=== PATIENT | male | born 1980 | race Caucasian/White ===

== ENCOUNTER 2016-10-14 12:57 | Inpatient (IN) | payer OTHER ==
[2016-10-14 14:44] VITALS: BMI 20.3
--- NOTE | 2016-10-14 17:19 | HP ---
[id number] Restless Observation: 1= Difficult to Sit Still Pupil Size: 0= Normal to Room Light Bone or Joint Aches: 2= Severe Diffuse Aches Runny Nose/ Eye Tearin= Runny Nose/Eyes GI Upset > 30mins: 2= Nausea/Diarrhea Tremor Observation: 2= Slight Tremor Visible Yawning Observation: 0= None Anxiety or Irritability: 2=Irritable/Anxious Goose Flesh Skin: 3=Piloerection COWS Score: 15 CIWA Score - CIWA Score Nausea/Vomitin-Mild Nausea/No Vomiting Muscle Tremors: 4-Moderate,w/Arms Extend Anxiety: 4-Mod. Anxious/Guarded Agitation: 4-Moderately Restless Paroxysmal Sweats: 1-Minimal Palms Moist Orientation: 0-Oriented Tacttile Disturbances: 0-None Auditory Disturbances: 0-None Visual Disturbances: 0-None Headache: 1-Very Mild CIWA-Ar Total Score: 15 Admission ROS S - HPI Chief Complaint: WITHDRAWAL SX Allergies/Adverse Reactions: Allergies Allergy/AdvReac Type Severity Reaction Status Date / Time No Known Allergies Allergy Verified 10/14/16 17:52 History of Present Illness: 36 YEARS OLD MALE WITH LONG HISTORY OF OPIOID NICOTINE XANAX DEPENDENCE DENIES MEDICAL ISSUE HAS DEPRESSION IS ADMITTED TO DETOX Exam Limitations: No Limitations - Ebola screening Have you traveled outside of the country in the last 21 days: No Have you had contact with anyone from an Ebola affected area: No Have you been sick,other than usual withdrawal symptoms: No Do you have a fever: No - Review of Systems Constitutional: Chills, Loss of Appetite, Changes in sleep, Unintentional Wgt. Loss, Unexplained wgt Loss EENT: reports: No Symptoms Reported Respiratory: reports: No Symptoms reported Cardiac: reports: No Symptoms Reported GI: reports: Nausea, Poor Appetite, Poor Fluid Intake, Abdominal cramping : reports: No Symptoms Reported Musculoskeletal: reports: Back Pain, Joint Pain, Muscle Pain, Neck Pain Neuro: reports: Tremors Endocrine: reports: No Symptoms Reported Hematology: reports: No Symptoms Reported Psychiatric: reports: Judgement Intact, Orientated x3, Depressed Other Systems: Reviewed and Negative Patient History - Patient Medical History Hx Anemia: No Hx Asthma: No Hx Chronic Obstructive Pulmonary Disease (COPD): No Hx Cancer: No Hx Cardiac Disorders: No Hx Congestive Heart Failure: No Hx Hypertension: No Hx Hypercholesterolemia: No Hx Pacemaker: No HX Cerebrovascular Accident: No Hx Seizures: No Hx Dementia: No Hx Diabetes: No Hx Gastrointestinal Disorders: No Hx Liver Disease: No Hx Genitourinary Disorders: No Hx Sexually Transmitted Disorders: No Hx Renal Disease (ESRD): No Hx Thyroid Disease: No Hx Human Immunodeficiency Virus (HIV): No (LAST 2013 negative) Hx Hepatitis C: Yes Hx Depression: Yes Hx Suicide Attempt: No Hx Bipolar Disorder: No Hx Schizophrenia: No - Patient Surgical History Past Surgical History: No Hx Neurologic Surgery: No Hx Cataract Extraction: No Hx Cardiac Surgery: No Hx Lung Surgery: No Hx Breast Surgery: No Hx Breast Biopsy: No Hx Abdominal Surgery: No Hx Appendectomy: No Hx Cholecystectomy: No Hx Genitourinary Surgery: No Hx Orthopedic Surgery: No - PPD History Previous Implant?: Yes Implanted On Prior [facility] Admission?: Yes Date: 12/27/15 Results: 0 MM PPD to be Administered?: No - Smoking Cessation Smoking history: Current every day smoker Have you smoked in the past 12 months: Yes Aproximately how many cigarettes per day: 7 Cigars Per Day: 0 Hx Chewing Tobacco Use: No Initiated information on smoking cessation: Yes 'Breaking Loose' booklet given: 10/14/16 - Substance & Tx. History Hx Alcohol Use: No Hx Substance Use: Yes Substance Use Type: Marijuana, Opiates, Tranquilizers Hx Substance Use Treatment: Yes - Substances Abused Alprazolam (Xanax) Route: Oral Frequency: Daily Amount used: 2 MG Age of first use: 33 Date of Last Use: 10/13/16 Heroin Route: Injection Frequency: Daily Amount used: 15 BAGS Age of first use: 22 Date of Last Use: 10/13/16 Family Disease History - Family Disease History Family Disease History: Other: Grandparent () Other Family History: ONLY CHILD Admission Physical Exam BHS - Vital Signs Vital Signs: Vital Signs - 24 hr 10/14/16 14:42 Temperature 97 F L Pulse Rate 75 Respiratory 20 Rate Blood Pressure 115/71 - Physical General Appearance: Yes: Appropriately Dressed, Mild Distress, Thin, Tremorous, Irritable, Sweating, Anxious HEENTM: Yes: Hearing grossly Normal, Normal ENT Inspection, Normocephalic, Normal Voice Respiratory: Yes: Chest Non-Tender, Lungs Clear, Normal Breath Sounds, No Respiratory Distress, No Accessory Muscle Use Neck: Yes: Supple, Trachea in good position Breast: Yes: Breasts Symetrical Cardiology: Yes: Regular Rhythm, Regular Rate, S1, S2 Abdominal: Yes: Non Tender, Soft Genitourinary: Yes: Within Normal Limits Back: Yes: Normal Inspection Musculoskeletal: Yes: full range of Motion, Gait Steady, Back pain, Muscle Pain Extremities: Yes: Normal Range of Motion, Non-Tender, Tremors, Erythema (IV OPIOID LEFT INNER ELBOW) Neurological: Yes: Fully Oriented, Alert, Motor Strength 5/5, Normal Response, Depressed Affect Integumentary: Yes: Warm, Track Mcelroy Lymphatic: Yes: Within Normal Limits - Diagnostic (1) Opioid dependence with withdrawal Status: Acute (2) Sedative, hypnotic or anxiolytic dependence with withdrawal, uncomplicated Status: Acute (3) Weight loss Status: Acute (4) Hepatitis C Status: Chronic Qualifiers: Viral hepatitis chronicity: chronic Hepatic coma status: without hepatic coma Qualified Code(s): B18.2 - Chronic viral hepatitis C Comment: SCHEDULE TO BE TREATED (5) Nicotine dependence Status: Acute Qualifiers: Nicotine product type: cigarettes Substance use status: in withdrawal Qualified Code(s): F17.213 - Nicotine dependence, cigarettes, with withdrawal (6) Depression (emotion) Status: Suspected Qualifiers: Depression Type: dysthymia Qualified Code(s): F34.1 - Dysthymic disorder Comment: OF GRANDMOTHER (7) Abrasion of skin Status: Acute Comment: LEFT INNER ELBOW Cleared for Admission S - Detox or Rehab [facility] Level of Care: Medically Managed Detox Regimen/Protocol: Methadone/Valium S Breath Alcohol Content Breath Alcohol Content: 0 Urine Drug Screen - Results Drug Screen Negative: No Urine Drug Screen Results: THC-Marijuana, OPI-Opiates, MET-Methamphetamine, BZO- Benzodiazepines
[2016-10-14] MEDS ORDERED: LOPERAMIDE HCL 2 MG CAPSULE PO PRN (17:26)
[2016-10-14] MEDS ORDERED: ACETAMINOPHEN 325 MG TABLET (FP) PO PRN (17:26)
[2016-10-14] MEDS ORDERED: MAGNESIUM CITRATE 300 ML BOTTLE PO PRN (17:26)
[2016-10-14] MEDS ORDERED: P-EPHED 60MG/TRIPROLIDI 2.5MG TABLET PO PRN (17:26)
[2016-10-14] MEDS ORDERED: MAGNESIUM HYDROX 2400MG/30ML ORAL SUSPENSION 30 ML CUP PO PRN (17:26)
[2016-10-14] MEDS ORDERED: IBUPROFEN 400 MG TABLET (FP) PO PRN (17:26)
[2016-10-14] MEDS ORDERED: MAG HYDROX/AL HYDROX/SIMETH 30 ML UNIT-DOSE CUP PO PRN (17:26)
[2016-10-14] MEDS ORDERED: diphenhydrAMINE HCL 50 MG CAPSULE PO PRN (17:26)
[2016-10-14] MEDS ORDERED: guaiFENesin/D-METHORPHAN HB 10 ML UNIT-DOSE CUPS PO PRN (17:26)
[2016-10-14] MEDS ORDERED: NICOTINE POLACRILEX 2 MG GUM BC PRN (17:26)
[2016-10-14] MEDS ORDERED: MENTHOL/PHENOL 1 EACH UD MM PRN (17:26)
[2016-10-14] MEDS ORDERED: BACITRACIN 0.9 GM PACKET TP ONE (18:15)
[2016-10-14] MEDS ORDERED: METHADONE HCL 10 MG TABLET (FOR DETOX USE ONLY) PO ONE ×2 (18:30→23:00)
[2016-10-14] MEDS ORDERED: diazePAM 5 MG TABLET PO ONE (18:30)
[2016-10-14] MEDS ORDERED: cloNIDine HCL 0.1 MG TABLET PO ONE (21:43)
[2016-10-14] MEDS ORDERED: THIAMINE HCL 100 MG TABLET (FP) PO SCH (22:00)
[2016-10-14 23:26] LABS: URINE APPEARANCE CLEAR; URINE BILIRUBIN NEGATIVE (NEGATIVE); URINE BLOOD NEGATIVE (NEGATIVE); URINE COLOR STRAW; URINE GLUCOSE (UA) NEGATIVE (NEGATIVE); URINE KETONE NEGATIVE (NEGATIVE); URINE LEUK ESTERASE NEGATIVE (NEGATIVE); URINE NITRITE NEGATIVE (NEGATIVE); URINE PROTEIN NEGATIVE (NEGATIVE); URINE UROBILINOGEN NEGATIVE E.U./dl (0.2-1.0)
--- NOTE | 2016-10-15 09:51 | CONSULT ---
[facility] Psychiatric Consult - Data Date of interview: 10/15/16 Admission source: [facility] Identifying data: Readmission to [facility] for this 36 y/o male seeking detox treatment on for heroin,alcohol,marijuana and sedative/ anxiolytic dependence.Patient is single without children,undomiciled,unemployed and supported on food stamps. Substance Abuse History: - Smoking Cessation. Smoking history: Current every day smoker. Have you smoked in the past 12 months: Yes. Aproximately how many cigarettes per day: 7. Cigars Per Day: 0. Hx Chewing Tobacco Use: No. Initiated information on smoking cessation: Yes. 'Breaking Loose' booklet given : 10/14/16. - Substance & Tx. History. Hx Alcohol Use: No. Hx Substance Use: Yes. Substance Use Type: Marijuana, Opiates, Tranquilizers. Hx Substance Use Treatment: Yes. - Substances Abused. Alprazolam (Xanax). Route: Oral. Frequency: Daily. Amount used: 2 MG. Age of first use: 33. Date of Last Use: 10/13/16. Heroin. Route: Injection. Frequency: Daily. Amount used: 15 BAGS. Age of first use: 22. Date of Last Use: 10/13/16. Confirmed by patient. Medical History: Hepatitis C. Psychiatric History: Patient denies. Physical/Sexual Abuse/Trauma History: Patient denies. Additional Comment: Urine Drug Screen Results: THC-Marijuana, OPI-Opiates, MET- Methamphetamine, BZO-Benzodiazepines.Noted. Mental Status Exam - Mental Status Exam Alert and Oriented to: Time, Place, Person Cognitive Function: Good Patient Appearance: Unkempt, Disheveled (short stature,frail habitus) Mood: Angry, Anxious, Irritable Affect: Mood Congruent Patient Behavior: Fatigued, Uncooperative, Talkative (medication-seeking) Speech Pattern: Clear Voice Loudness: Mildly Loud Thought Process: Goal Oriented Thought Disorder: Not Present Hallucinations: Denies Suicidal Ideation: Denies Homicidal Ideation: Denies Insight/Judgement: Poor Sleep: Poorly, Difficulty falling asleep Appetite: Poor, Weight loss Muscle strength/Tone: Normal Gait/Station: Normal Psychiatric Findings - Problem List ([place] 1, 2,3) (1) Opioid dependence with withdrawal Current Visit: Yes Status: Acute (2) Sedative, hypnotic or anxiolytic dependence with withdrawal, uncomplicated Current Visit: Yes Status: Acute (3) Alcohol dependence with uncomplicated withdrawal Current Visit: Yes Status: Acute (4) Nicotine dependence Current Visit: Yes Status: Acute Qualifiers: Nicotine product type: cigarettes Substance use status: in withdrawal Qualified Code(s): F17.213 - Nicotine dependence, cigarettes, with withdrawal (5) Amphetamine abuse Current Visit: Yes Status: Acute (6) Drug-induced mood disorder Current Visit: Yes Status: Acute (7) Insomnia Current Visit: Yes Status: Acute - Initial Treatment Plan Initial Treatment Plan: Psychoeducation.Detoxification in progress.Ambien 10 mg po hs (patient's request).Made aware of potential for parasomnias.Patient agrees with this careplan.Observation.Pharmacy claims are revisited : last prescribed seroquel in March 2016 at [facility] [id number].
[2016-10-15] MEDS ORDERED: PRENATAL VITAMINS W/ FOLIC ACID TABLET (FP) PO SCH (10:00)
[2016-10-15] MEDS ORDERED: NICOTINE 14 MG/24 HOURS TOPICAL PATCH TD SCH (10:00)
[2016-10-15] MEDS ORDERED: METHADONE HCL 10 MG TABLET (FOR DETOX USE ONLY) PO SCH (10:00)
[2016-10-15 10:03] LABS: MCH 27.9 pg (25.7-33.7); MCHC 34.1 g/dl (32.0-35.9); MEAN CELL VOLUME 81.7 fl (80-96); MEAN PLT VOLUME 8.7 fl (7.5-11.1); PLATELET COUNT 256 K/MM3 (134-434); RDW 14.1 % (11.9-15.9); WHITE BLOOD COUNT 6.5 K/mm3 (4.0-10.0)
[2016-10-15 10:27] LABS: ALBUMIN 3.5 g/dl (3.4-5.0); ALK PHOS 182 U/L (45-117); ANION GAP 7 (8-16); BILIRUBIN,TOTAL 0.6 mg/dL (0.2-1.0); CALCIUM 9.2 mg/dL (8.5-10.1); CO2 33 mmol/L (21-32); COCKROFT - GAULT 84.52; CREATININE 0.9 mg/dL (0.7-1.3); GLUCOSE,RANDOM 87 mg/dL (74-106); SGOT/AST 36 U/L (15-37); SGPT/ALT 42 U/L (12-78); TOT PROT 6.9 g/dl (6.4-8.2)
--- NOTE | 2016-10-15 11:20 | EKG ---
Test Reason : Blood Pressure : / mmHG Vent. Rate : 066 BPM Atrial Rate : 066 BPM P-R Int : 164 ms QRS Dur : 096 ms QT Int : 394 ms P-R-T Axes : 039 055 030 degrees QTc Int : 413 ms NORMAL SINUS RHYTHM RSR' OR QR PATTERN IN V1 SUGGESTS RIGHT VENTRICULAR CONDUCTION DELAY NO PREVIOUS ECGS AVAILABLE Confirmed by DENY CAMARENA MD ([id number]) on 10/15/2016 11:19:46 AM Referred By: Will Merino Confirmed By:DENY CAMARENA MD
--- NOTE | 2016-10-15 11:33 | PN ---
S CIWA - CIWA Score Nausea/Vomitin-No Nausea/No Vomiting Muscle Tremors: 4-Moderate,w/Arms Extend Anxiety: 6 Agitation: 6 Paroxysmal Sweats: 1-Minimal Palms Moist Orientation: 0-Oriented Tacttile Disturbances: 3-Moderate Itch/Numb/Burn Auditory Disturbances: 0-None Visual Disturbances: 0-None Headache: 0-None Present CIWA-Ar Total Score: 20 BHS COWS - Scale Resting Pulse: 0= [place] 80 or Below Sweatin= Chills/Flushing Restless Observation: 3= Extraneous Movement Pupil Size: 0= Normal to Room Light Bone or Joint Aches: 4=Acute Joint/Muscle Pain Runny Nose/ Eye Tearin= Nasal Congestion GI Upset > 30mins: 1= Stomach Cramp Tremor Observation of Outstretched Hands: 2= Slight Tremor Visible Yawning Observation: 2= >3x During Session Anxiety or Irritability: 2=Irritable/Anxious Goose Flesh Skin: 0=Smooth Skin COWS Score: 16 BHS Progress Note (SOAP) Subjective: IRRITABILITY,AGITATIONS,RESTLESSNESS,UNABLE TO FOLLOW DIRECTIONS,PACING UP AND DOWN AND CURSING AT STAFF NURSE ALISON CALLING HER "BI-CH". FORCEFUL DEMAND FOR CLONIDINE FROM PROVIDER WITHOUT REGARD TO PARAMETERS WHEN EXPLAINED TO PATIENT AND HARASSMENT OF NURSES TO GIVE HIM CLONIDINE INSTANTLY BY ALL MEANS. PT WAS TEAMED THIS MORNING BY FACTORER,NURSES SAKSHI ROSAS AND COUNSELOR CAMELIA. PT UNDERSTANDS HE IS ON FINAL WARNING AND HAS BEEN ENCOURAGED TO ALLOW HIMSELF TO RECEIVE THE TREATMENT AND HELP HE IS SEEKING HERE. Objective: 10/15/16 11:33 Vital Signs Temperature 95.7 F L 10/15/16 10:20 Pulse Rate 58 L 10/15/16 10:20 Respiratory Rate 16 10/15/16 10:20 Blood Pressure 105/56 10/15/16 10:20 O2 Sat by Pulse Oximetry (%) Laboratory Last Values WBC 6.5 K/mm3 (4.0-10.0) 10/15/16 07:00 RBC 4.89 M/mm3 (4.00-5.60) 10/15/16 07:00 Hgb 13.6 GM/dL (11.7-16.9) 10/15/16 07:00 Hct 40.0 % (35.4-49) 10/15/16 07:00 MCV 81.7 fl (80-96) 10/15/16 07:00 MCHC 34.1 g/dl (32.0-35.9) 10/15/16 07:00 RDW 14.1 % (11.9-15.9) 10/15/16 07:00 Plt Count 256 K/MM3 (134-434) 10/15/16 07:00 MPV 8.7 fl (7.5-11.1) D 10/15/16 07:00 Sodium 139 mmol/L (136-145) 10/15/16 07:00 Potassium 4.2 mmol/L (3.5-5.1) 10/15/16 07:00 Chloride 99 mmol/L (98-107) 10/15/16 07:00 Carbon Dioxide 33 mmol/L (21-32) H D 10/15/16 07:00 Anion Gap 7 (8-16) L 10/15/16 07:00 BUN 7 mg/dL (7-18) D 10/15/16 07:00 Creatinine 0.9 mg/dL (0.7-1.3) 10/15/16 07:00 Creat Clearance w eGFR > 60 (>60) 10/15/16 07:00 Random Glucose 87 mg/dL (74-106) 10/15/16 07:00 Calcium 9.2 mg/dL (8.5-10.1) 10/15/16 07:00 Total Bilirubin 0.6 mg/dL (0.2-1.0) 10/15/16 07:00 AST 36 U/L (15-37) 10/15/16 07:00 ALT 42 U/L (12-78) D 10/15/16 07:00 Alkaline Phosphatase 182 U/L (45-117) H D 10/15/16 07:00 Total Protein 6.9 g/dl (6.4-8.2) 10/15/16 07:00 Albumin 3.5 g/dl (3.4-5.0) 10/15/16 07:00 Urine Color Straw 10/14/16 22:52 Urine Appearance Clear 10/14/16 22:52 Urine pH 7.0 (5.0-8.0) 10/14/16 22:52 Ur Specific [place] 1.010 (1.005-1.025) 10/14/16 22:52 Urine Protein Negative (NEGATIVE) 10/14/16 22:52 Urine Glucose (UA) Negative (NEGATIVE) 10/14/16 22:52 Urine Ketones Negative (NEGATIVE) 10/14/16 22:52 Urine Blood Negative (NEGATIVE) 10/14/16 22:52 Urine Nitrite Negative (NEGATIVE) 10/14/16 22:52 Urine Bilirubin Negative (NEGATIVE) 10/14/16 22:52 Urine Urobilinogen Negative E.U./dl (0.2-1.0) 10/14/16 22:52 Ur Leukocyte Esterase Negative (NEGATIVE) 10/14/16 22:52 RPR Titer Nonreactive (NONREACTIVE) 10/15/16 07:00 Assessment: 10/15/16 11:33 WITHDRAWAL SX Plan: CONTINUE DETOX MONITOR PT'S BEHAVIOR
[2016-10-15] MEDS: CIPROFLOXACIN HCL 0.3% OPHTH 2.5ML BOTTLE OD SCH ×2 (11:43→15:07)
--- NOTE | 2016-10-15 14:06 | DS ---
[facility] Detox Discharge Summary Admission Date: 10/14/16 Discharge Date: 10/15/16 - History Present History: Alcohol Dependence, Opioid Dependence Additional Comments: PT D/C'D DUE TO NONCOMPLIANT WITH UNIT RULES AND NOT ABLE TO FOLLOW DIRECTIONS. Pertinent Past History: HEP C RIGHT EYE CONJUCTIVITIS DEPRESSION - Physical Exam Results Vital Signs: Vital Signs Temperature 95.7 F L 10/15/16 10:20 Pulse Rate 58 L 10/15/16 10:20 Respiratory Rate 16 10/15/16 10:20 Blood Pressure 105/56 10/15/16 10:20 O2 Sat by Pulse Oximetry (%) Pertinent Admission Physical Exam Findings: WITHDRAWAL SX - Treatment Patient has Accepted a Rehab Referral to: NONCOMPLIANT WITH UNIT CARE DIRECTIONS - Medication Discharge Medications: Ambulatory Orders Zolpidem Tartrate [Ambien] 10 mg PO HS #14 tablet MDD 10 03/31/16 Quetiapine Fumarate [Seroquel] 100 tab PO HS #30 tablet 04/05/16 - Diagnosis (1) Alcohol dependence with uncomplicated withdrawal Current Visit: Yes Status: Acute (2) Nicotine dependence Current Visit: Yes Status: Acute Qualifiers: Nicotine product type: cigarettes Substance use status: in withdrawal Qualified Code(s): F17.213 - Nicotine dependence, cigarettes, with withdrawal (3) Opioid dependence with withdrawal Current Visit: Yes Status: Acute (4) Weight loss Current Visit: Yes Status: Acute (5) Hepatitis C Current Visit: Yes Status: Chronic Qualifiers: Viral hepatitis chronicity: chronic Hepatic coma status: without hepatic coma Qualified Code(s): B18.2 - Chronic viral hepatitis C - AMA Did Patient Leave Against Medical Advice: No (NONCOMPLIANT WITH UNIT CARE DIRECTIONS)
[2016-10-15 14:10] VITALS: BP 125/68; PULSE 70; TEMP 95.9
[2016-10-15] MEDS ORDERED: ZOLPIDEM TARTRATE 10 MG TABLET (PARK CARE ONLY) PO PRN (22:00)
[2016-10-16] MEDS ORDERED: METHADONE HCL 5 MG TABLET (FOR DETOX USE ONLY) PO SCH (10:00)
[2016-10-16] MEDS ORDERED: diazePAM 5 MG TABLET PO SCH (10:00)
[2016-10-18] MEDS ORDERED: diazePAM 5 MG TABLET PO SCH (10:00)
[2016-10-18] MEDS ORDERED: METHADONE HCL 10 MG TABLET (FOR DETOX USE ONLY) PO SCH (10:00)
[2016-10-19] MEDS ORDERED: METHADONE HCL 5 MG TABLET (FOR DETOX USE ONLY) PO SCH (06:00)
== END 2016-10-15 13:55 | disposition home or self-care (01) | DRG 773 ==
LOC: YASAS 12:57 → Y3N 18:01
PROVIDERS: ADMIT Internal Medicine Addiction Medicine; ATTEND Internal Medicine Addiction Medicine
PROC: HZ2ZZZZ Detoxification Services for Substance Abuse Treatment (ICD-10-PCS; principal; 2016-10-15)
DX: F11.23 Opioid dependence with withdrawal (principal); F13.230 Sedative, hypnotic or anxiolytic dependence with withdrawal, uncomplicated; F10.230 Alcohol dependence with withdrawal, uncomplicated; F17.213 Nicotine dependence, cigarettes, with withdrawal; F15.10 Other stimulant abuse, uncomplicated; F19.24 Other psychoactive substance dependence with psychoactive substance-induced mood disorder; F34.1 Dysthymic disorder; G47.00 Insomnia, unspecified; B18.2 Chronic viral hepatitis C; R63.4 Abnormal weight loss; Z68.20 Body mass index [BMI] 20.0-20.9, adult
CPT/HCPCS: 36415; 80053; 81003; 85027; 86593; 93005; 93010

== ENCOUNTER 2018-04-16 14:54 | Inpatient (IN) | payer OTHER ==
[2018-04-16 15:29] VITALS: BMI 22.1
--- NOTE | 2018-04-16 15:37 | HP ---
COWS - Scale Resting Pulse: 2= [place] 101-120 Sweatin= Chills/Flushing Restless Observation: 1= Difficult to Sit Still Pupil Size: 1= Pupils >than Normal Bone or Joint Aches: 2= Severe Diffuse Aches Runny Nose/ Eye Tearin= Runny Nose/Eyes GI Upset > 30mins: 2= Nausea/Diarrhea Tremor Observation: 2= Slight Tremor Visible Yawning Observation: 1= 1-2x During Session Anxiety or Irritability: 2=Irritable/Anxious Goose Flesh Skin: 0=Smooth Skin COWS Score: 16 CIWA Score Nausea/Vomitin Muscle Tremors: 2 Anxiety: 2 Agitation: 2 Paroxysmal Sweats: 1-Minimal Palms Moist Orientation: 1-Uncertain about Date Tacttile Disturbances: 1-Very Mild Itch/Numbness Auditory Disturbances: 1-Very Mild Visual Disturbances: 0-None Headache: 2-Mild CIWA-Ar Total Score: 14 - Admission Criteria [facility] Guidelines: Admission for Medically Managed Detox: Requires at least one of the followin. CIWA greater than 12 2. Seizures within the past 24 hours 3. Delirium tremens within the past 24 hours 4. Hallucinations within the past 24 hours 5. Acute intervention needed for co occurring medical disorder 6. Acute intervention needed for co occurring psychiatric disorder 7. Severe withdrawal that cannot be handled at a lower level of care (continued vomiting, continued diarrhea, abnormal vital signs) requiring intravenous medication and/or fluids 8. Patient presents the following: CIWA greater than 12 Admission Criteria Met: Admission criteria met Admission ROS S - [facility] Chief Complaint: need help to stop drinking heroin,xanax,cocaine,marijuana Allergies/Adverse Reactions: Allergies Allergy/AdvReac Type Severity Reaction Status Date / Time No Known Allergies Allergy Verified 04/16/18 16:20 History of Present Illness: this 37 years old male with heroin,xanax,cocaine and marijuana,seeking detox, withdrawal symptom, multiple admissions in detox,last detox 02/09/18 to 02/14/18 keep relapsing nicotine dependence weight loss anxiety,depression,insomnia longest period of sobriety 4 years Exam Limitations: No Limitations - Ebola screening Have you traveled outside of the country in the last 21 days: No Have you been sick,other than usual withdrawal symptoms: No - Review of Systems Constitutional: Chills, Loss of Appetite, Malaise, Night Sweats, Changes in sleep, Weakness, Unintentional Wgt. Loss EENT: reports: Tearing, Nose Congestion Respiratory: reports: No Symptoms reported Cardiac: reports: Palpitations GI: reports: Diarrhea, Nausea, Vomiting, Abdominal cramping : reports: No Symptoms Reported Musculoskeletal: reports: Back Pain, Joint Pain, Muscle Pain, Joint Stiffness Integumentary: reports: Dryness Neuro: reports: Headache, Tremors Endocrine: reports: No Symptoms Reported Hematology: reports: No Symptoms Reported Psychiatric: reports: No Sypmtoms Reported, Judgement Intact, Mood/Affect Appropiate, Orientated x3, Anxious, Depressed (insomnia) Patient History - Patient Medical History Hx Anemia: No Hx Asthma: No Hx Chronic Obstructive Pulmonary Disease (COPD): No Hx Cancer: No Hx Cardiac Disorders: No Hx Congestive Heart Failure: No Hx Hypertension: No Hx Hypercholesterolemia: No Hx Pacemaker: No HX Cerebrovascular Accident: No Hx Seizures: No Hx Dementia: No Hx Diabetes: No Hx Gastrointestinal Disorders: No Hx Liver Disease: No Hx Genitourinary Disorders: No Hx Sexually Transmitted Disorders: No Hx Renal Disease (ESRD): No Hx Thyroid Disease: No Hx Human Immunodeficiency Virus (HIV): No (last 01/21 negative) Hx Hepatitis C: Yes (no treatment) Hx Depression: Yes (anxiety) Hx Suicide Attempt: No Hx Bipolar Disorder: No Hx Schizophrenia: No Other Medical History: no suicidal,no homicidal - Patient Surgical History Past Surgical History: No Hx Neurologic Surgery: No Hx Cataract Extraction: No Hx Cardiac Surgery: No Hx Lung Surgery: No Hx Breast Surgery: No Hx Breast Biopsy: No Hx Abdominal Surgery: No Hx Appendectomy: No Hx Cholecystectomy: No Hx Genitourinary Surgery: No Hx Section: No Hx Orthopedic Surgery: No Anesthesia Reaction: No - PPD History Previous Implant?: Yes Documented Results: Negative w/proof Implanted On Prior R Admission?: Yes Date: 02/11/18 Results: 0 mm PPD to be Administered?: No - Smoking Cessation Smoking history: Current every day smoker Have you smoked in the past 12 months: Yes Aproximately how many cigarettes per day: 10 Cigars Per Day: 0 Hx Chewing Tobacco Use: No Initiated information on smoking cessation: Yes 'Breaking Loose' booklet given: 04/16/18 - Substance & Tx. History Hx Alcohol Use: No Hx Substance Use: Yes Substance Use Type: Cocaine, Heroin, Tranquilizers Hx Substance Use Treatment: Yes ([facility] 02/09/18 to 02/14/18) - Substances Abused Heroin Route: Injection Frequency: Daily Amount used: 5 to 8 bags Age of first use: 22 Date of Last Use: 04/15/18 Alprazolam (Xanax) Route: Oral Frequency: Daily Amount used: 3 mgs Age of first use: 32 Date of Last Use: 04/15/18 Marijuana/Hashish Route: Smoking Frequency: Daily Amount used: 20$ Age of first use: 14 Date of Last Use: 04/15/18 Cocaine Route: Smoking Frequency: 1-3 times last 30 days Amount used: no money spending Age of first use: 35 Date of Last Use: 04/14/18 Family Disease History - Family Disease History Family Disease History: Other: Grandparent () Admission Physical Exam [facility] - Vital Signs Vital Signs: Vital Signs - 24 hr 04/16/18 15:27 Temperature 100.0 F H Pulse Rate 102 H Respiratory 18 Rate Blood Pressure 114/73 - Physical General Appearance: Yes: Moderate Distress, Tremorous, Irritable, Sweating, Anxious HEENTM: Yes: Normal ENT Inspection, TEMO, Pharynx Normal Respiratory: Yes: Lungs Clear, Normal Breath Sounds, No Respiratory Distress Neck: Yes: Within Normal Limits, Supple, Trachea in good position Breast: Yes: Within Normal Limits Cardiology: Yes: Tachycardia Abdominal: Yes: Within Normal Limits, Normal Bowel Sounds, Non Tender, Flat, Soft Genitourinary: Yes: Within Normal Limits Back: Yes: Muscle Spasm Musculoskeletal: Yes: full range of Motion, Back pain, Joint Stiffness, Muscle Pain Extremities: Yes: Within Normal Limits, Normal Range of Motion, Tremors Neurological: Yes: gem carver II-XII NML intact, Fully Oriented, Alert, Motor Strength 5/5 Integumentary: Yes: Dry, Track Mcelroy, Other (cellulitis) Lymphatic: Yes: Within Normal Limits - Diagnostic (1) Opioid dependence with withdrawal Current Visit: No Status: Acute (2) Sedative, hypnotic or anxiolytic dependence with withdrawal, uncomplicated Current Visit: No Status: Acute (3) Syncope Current Visit: No Status: Acute (4) Weight loss Current Visit: No Status: Acute (5) Hepatitis C Current Visit: No Status: Chronic Qualifiers: Viral hepatitis chronicity: chronic Hepatic coma status: without hepatic coma Qualified Code(s): B18.2 - Chronic viral hepatitis C (6) Nicotine dependence Current Visit: No Status: Chronic Qualifiers: Nicotine product type: cigarettes Substance use status: in withdrawal Qualified Code(s): F17.213 - Nicotine dependence, cigarettes, with withdrawal (7) Dehydration Current Visit: Yes Status: Acute (8) Insomnia secondary to depression with anxiety Current Visit: Yes Status: Acute Cleared for Admission [facility] - Detox or Rehab [facility] Level of Care: Medically Managed Detox Regimen/Protocol: Methadone/Valium S Breath Alcohol Content Breath Alcohol Content: 0 Urine Drug Screen - Results Drug Screen Negative: No Urine Drug Screen Results: THC-Marijuana, SHAY-Cocaine, OPI-Opiates, BZO- Benzodiazepines, FEN-Fentanyl
[2018-04-16] MEDS ORDERED: MENTHOL/PHENOL 1 EACH UD MM PRN (15:52)
[2018-04-16] MEDS ORDERED: LOPERAMIDE HCL 2 MG CAPSULE PO PRN (15:52)
[2018-04-16] MEDS ORDERED: ACETAMINOPHEN 325 MG TABLET (FP) PO PRN (15:52)
[2018-04-16] MEDS ORDERED: MAG HYDROX/AL HYDROX/SIMETH 30 ML UNIT-DOSE CUP PO PRN (15:52)
[2018-04-16] MEDS ORDERED: P-EPHED 60MG/TRIPROLIDI 2.5MG TABLET PO PRN (15:52)
[2018-04-16] MEDS ORDERED: MAGNESIUM CITRATE 300 ML BOTTLE PO PRN (15:52)
[2018-04-16] MEDS ORDERED: MAGNESIUM HYDROX 2400MG/30ML ORAL SUSPENSION 30 ML CUP PO PRN (15:52)
[2018-04-16] MEDS ORDERED: guaiFENesin/D-METHORPHAN HB 10 ML UNIT-DOSE CUPS PO PRN (15:52)
[2018-04-16] MEDS ORDERED: IBUPROFEN 400 MG TABLET (FP) PO PRN (15:52)
[2018-04-16] MEDS ORDERED: diazePAM 5 MG TABLET PO ONE (17:30)
[2018-04-16] MEDS ORDERED: METHADONE HCL 10 MG TABLET (FOR DETOX USE ONLY) PO ONE ×2 (17:30→23:00)
[2018-04-16] MEDS: NICOTINE 14 MG/24 HOURS TOPICAL PATCH TD SCH (17:36)
[2018-04-16] MEDS ORDERED: MELATONIN 5 MG TABLETS PO PRN (22:00)
[2018-04-16] MEDS: THIAMINE HCL 100 MG TABLET (FP) PO SCH ×2 (22:42→22:47)
[2018-04-16] MEDS: SULFAMETHOXAZOLE/TRIMETHOPRIM 800MG/160MG D.S. TABLET PO SCH (22:42)
[2018-04-16] MEDS: diazePAM 5 MG TABLET PO SCH (22:42)
[2018-04-17] MEDS: diazePAM 5 MG TABLET PO SCH ×3 (05:24→22:21)
[2018-04-17] MEDS: diazePAM 5 MG TABLET PO PRN (09:11)
[2018-04-17] MEDS ORDERED: METHADONE HCL 10 MG TABLET (FOR DETOX USE ONLY) PO SCH (10:00)
[2018-04-17] MEDS: NICOTINE 14 MG/24 HOURS TOPICAL PATCH TD SCH (10:26)
[2018-04-17] MEDS: PRENATAL VITAMINS W/ FOLIC ACID TABLET (FP) PO SCH (10:27)
[2018-04-17] MEDS: SULFAMETHOXAZOLE/TRIMETHOPRIM 800MG/160MG D.S. TABLET PO SCH ×2 (10:27→22:21)
[2018-04-17 10:28] LABS: HEMATOCRIT 40.4 % (35.4-49); HEMOGLOBIN 13.5 GM/dL (11.7-16.9); MCH 27.7 pg (25.7-33.7); MCHC 33.5 g/dl (32.0-35.9); MEAN CELL VOLUME 82.5 fl (80-96); PLATELET COUNT 208 K/MM3 (134-434); RDW 14.8 % (11.9-15.9); WHITE BLOOD COUNT 8.4 K/mm3 (4.0-10.0)
[2018-04-17 10:37] LABS: ALBUMIN 3.3 g/dl (3.4-5.0); ALK PHOS 89 U/L (45-117); ANION GAP 8 MMOL/L (8-16); BILIRUBIN,TOTAL 1.1 mg/dL (0.2-1); BLOOD UREA NITROGEN 7 mg/dL (7-18); CALCIUM 8.8 mg/dL (8.5-10.1); CHLORIDE 98 mmol/L (98-107); CO2 33 mmol/L (21-32); CREATININE 0.8 mg/dL (0.55-1.3); GLUCOSE,RANDOM 89 mg/dL (74-106); POTASSIUM 3.5 mmol/L (3.5-5.1); SGOT/AST 12 U/L (15-37); SGPT/ALT 16 U/L (13-61); SODIUM 139 mmol/L (136-145); TOT PROT 6.3 g/dl (6.4-8.2)
--- NOTE | 2018-04-17 10:51 | EKG ---
Test Reason : Blood Pressure : / mmHG Vent. Rate : 097 BPM Atrial Rate : 097 BPM P-R Int : 118 ms QRS Dur : 088 ms QT Int : 336 ms P-R-T Axes : 035 051 018 degrees QTc Int : 426 ms NORMAL SINUS RHYTHM NORMAL ECG WHEN COMPARED WITH ECG OF 09-FEB-2018 18:32, VENT. RATE HAS INCREASED BY 40 BPM Confirmed by BRYSON CARLTON MD ([id number]) on 04/17/2018 10:51:21 AM Referred By: Marylin Mcdonough Confirmed By:BRYSON CARLTON MD
--- NOTE | 2018-04-17 14:08 | CONSULT ---
[facility] Psychiatric Consult - Data Date of interview: 04/17/18 Admission source: [facility] Identifying data: Another admission to [facility] for this 37 y/o male seeking detoxification treatment, on , for heroin, alcohol, marijuana, cocaine, and benzodiazepine (xanax) dependence. Patient is single without children, domiciled, unemployed and supported on undisclosed means. Substance Abuse History: Confirmed by patient in this interview. Details in current interview : Smoking history: Current every day smoker. Have you smoked in the past 12 months: Yes. Aproximately how many cigarettes per day: 10. Cigars Per Day: 0. Hx Chewing Tobacco Use: No. Initiated information on smoking cessation: Yes. 'Breaking Loose' booklet given: 04/16/18. - Substance & Tx. History. Hx Alcohol Use: No. Hx Substance Use: Yes. Substance Use Type : Cocaine, Heroin, Tranquilizers. Hx Substance Use Treatment: Yes ([facility] to 02/14/18). - Substances Abused. Heroin. Route: Injection. Frequency : Daily. Amount used: 5 to 8 bags. Age of first use: 22. Date of Last Use: . Alprazolam (Xanax). Route: Oral. Frequency: Daily. Amount used: 3 mgs. Age of first use: 32. Date of Last Use: 04/15/18. Marijuana/ Hashish. Route: Smoking. Frequency: Daily. Amount used: 20$. Age of first use: 14. Date of Last Use: 04/15/18. Cocaine. Route: Smoking. Frequency: 1-3 times last 30 days. Amount used: no money spending. Age of first use: 35. Date of Last Use: 04/14/18 Medical History: Hepatitis C. Psychiatric History: No reported history of psychiatric hospitalizations or suicide attempts. No history of psychiatric OPD care. Mr Torres takes seroquel for insomnia (requests no more than 75 mg/hs). Physical/Sexual Abuse/Trauma History: Patient denies. Additional Comment: Urine Drug Screen Results: THC-Marijuana, SHAY-Cocaine, OPI- Opiates, BZO-Benzodiazepines, FEN-Fentanyl. Noted. Mental Status Exam - Mental Status Exam Alert and Oriented to: Time, Place, Person Cognitive Function: Good Patient Appearance: Well Groomed (small stature, thin habitus) Mood: Withdrawn, Anxious, Hopeful Affect: Appropriate, Normal Range Patient Behavior: Fatigued, Cooperative Speech Pattern: Clear, Appropriate Voice Loudness: Normal Thought Process: Intact, Goal Oriented Thought Disorder: Not Present Hallucinations: Denies Suicidal Ideation: Denies Homicidal Ideation: Denies Insight/Judgement: Poor Sleep: Poorly, Difficulty falling asleep Appetite: Good Muscle strength/Tone: Normal Gait/Station: Normal Psychiatric Findings - Problem List ([place] 1, 2,3) (1) Alcohol dependence with uncomplicated withdrawal Current Visit: Yes Status: Acute (2) Sedative, hypnotic or anxiolytic dependence with withdrawal, uncomplicated Current Visit: Yes Status: Acute (3) Cocaine dependence Current Visit: Yes Status: Acute (4) Cannabis dependence Current Visit: Yes Status: Acute (5) Nicotine dependence Current Visit: Yes Status: Acute Qualifiers: Nicotine product type: cigarettes Substance use status: in withdrawal Qualified Code(s): F17.213 - Nicotine dependence, cigarettes, with withdrawal (6) Drug-induced mood disorder Current Visit: Yes Status: Acute (7) Insomnia Current Visit: Yes Status: Acute - Initial Treatment Plan Initial Treatment Plan: Psycoeducation. Detoxification. Sleep hygiene. Psychotherapy (group, supportive). AA/NA meetings. Seroquel 75 mg po hs (patient 's specific request). Side effects/benefits discussed with the patient. Agrees to this careplan. Observation.
[2018-04-17 14:16] LABS: URINE APPEARANCE CLEAR; URINE BILIRUBIN NEGATIVE (<2.0 mg/dL); URINE COLOR YELLOW; URINE GLUCOSE (UA) NEGATIVE (NEGATIVE); URINE KETONE NEGATIVE (NEGATIVE); URINE LEUK ESTERASE NEGATIVE (NEGATIVE); URINE NITRITE NEGATIVE (NEGATIVE); URINE PROTEIN 1+ (NEGATIVE); URINE UROBILINOGEN NEGATIVE mg/dL (0.2-1.0)
[2018-04-17 14:37] LABS: URINE BACTERIA RARE /hpf (NONE SEEN)
--- NOTE | 2018-04-17 17:10 | PN ---
[facility] CIWA - CIWA Score Nausea/Vomitin-No Nausea/No Vomiting Muscle Tremors: 2 Anxiety: 5 Agitation: 4-Moderately Restless Paroxysmal Sweats: 2 Orientation: 0-Oriented Tacttile Disturbances: 0-None Auditory Disturbances: 0-None Visual Disturbances: 0-None Headache: 0-None Present CIWA-Ar Total Score: 13 S COWS - Scale Resting Pulse: 1= [place] 81-100 Sweatin=Flushed/Facial Moisture Restless Observation: 3= Extraneous Movement Pupil Size: 0= Normal to Room Light Bone or Joint Aches: 1= Mild Discomfort Runny Nose/ Eye Tearin= Nasal Congestion GI Upset > 30mins: 0= None Tremor Observation of Outstretched Hands: 2= Slight Tremor Visible Yawning Observation: 1= 1-2x During Session Anxiety or Irritability: 4=Extreme Anxiety Goose Flesh Skin: 0=Smooth Skin COWS Score: 15 S Progress Note (SOAP) Subjective: constipation sleep disturbance requesting psych MD Objective: 04/17/18 17:08 A & O x 3 Anxious restless Vital Signs Temperature 97.0 F L 04/17/18 13:22 Pulse Rate 75 04/17/18 13:22 Respiratory Rate 18 04/17/18 13:22 Blood Pressure 121/75 04/17/18 13:22 O2 Sat by Pulse Oximetry (%) Laboratory Last Values WBC 8.4 K/mm3 (4.0-10.0) 04/17/18 07:00 RBC 4.90 M/mm3 (4.00-5.60) 04/17/18 07:00 Hgb 13.5 GM/dL (11.7-16.9) 04/17/18 07:00 Hct 40.4 % (35.4-49) 04/17/18 07:00 MCV 82.5 fl (80-96) 04/17/18 07:00 MCH 27.7 pg (25.7-33.7) 04/17/18 07:00 MCHC 33.5 g/dl (32.0-35.9) 04/17/18 07:00 RDW 14.8 % (11.9-15.9) 04/17/18 07:00 Plt Count 208 K/MM3 (134-434) 04/17/18 07:00 MPV 9.0 fl (7.5-11.1) D 04/17/18 07:00 Sodium 139 mmol/L (136-145) 04/17/18 07:00 Potassium 3.5 mmol/L (3.5-5.1) 04/17/18 07:00 Chloride 98 mmol/L (98-107) 04/17/18 07:00 Carbon Dioxide 33 mmol/L (21-32) H 04/17/18 07:00 Anion Gap 8 MMOL/L (8-16) 04/17/18 07:00 BUN 7 mg/dL (7-18) 04/17/18 07:00 Creatinine 0.8 mg/dL (0.55-1.3) 04/17/18 07:00 Creat Clearance w eGFR > 60 (>60) 04/17/18 07:00 Random Glucose 89 mg/dL (74-106) 04/17/18 07:00 Calcium 8.8 mg/dL (8.5-10.1) 04/17/18 07:00 Total Bilirubin 1.1 mg/dL (0.2-1) H 04/17/18 07:00 AST 12 U/L (15-37) L 04/17/18 07:00 ALT 16 U/L (13-61) 04/17/18 07:00 Alkaline Phosphatase 89 U/L (45-117) 04/17/18 07:00 Total Protein 6.3 g/dl (6.4-8.2) L 04/17/18 07:00 Albumin 3.3 g/dl (3.4-5.0) L 04/17/18 07:00 Urine Color Yellow 04/17/18 13:20 Urine Appearance Clear 04/17/18 13:20 Urine pH 7.0 (5.0-8.0) 04/17/18 13:20 Ur Specific [place] 1.009 (1.010-1.035) L 04/17/18 13:20 Urine Protein 1+ (NEGATIVE) H 04/17/18 13:20 Urine Glucose (UA) Negative (NEGATIVE) 04/17/18 13:20 Urine Ketones Negative (NEGATIVE) 04/17/18 13:20 Urine Blood Negative (NEGATIVE) 04/17/18 13:20 Urine Nitrite Negative (NEGATIVE) 04/17/18 13:20 Urine Bilirubin Negative (<2.0 mg/dL) 04/17/18 13:20 Urine Urobilinogen Negative mg/dL (0.2-1.0) 04/17/18 13:20 Ur Leukocyte Esterase Negative (NEGATIVE) 04/17/18 13:20 Urine WBC (Auto) 1 /hpf (3-5) 04/17/18 13:20 Urine RBC (Auto) 1 /hpf (0-3) 04/17/18 13:20 Urine Bacteria Rare /hpf (NONE SEEN) 04/17/18 13:20 RPR Titer Nonreactive (NONREACTIVE) 04/17/18 07:00 labs noted Assessment: 04/17/18 17:10 withdrawal sx psych Consult already ordered Tack osorio to L arm Plan: continue detox bacitracin to track osorio
[2018-04-17] MEDS: QUEtiapine FUMARATE 25 MG TABLET (FP) PO SCH (22:21)
[2018-04-17] MEDS: THIAMINE HCL 100 MG TABLET (FP) PO SCH (22:21)
[2018-04-18] MEDS: diazePAM 5 MG TABLET PO PRN ×3 (05:56→17:33)
[2018-04-18] MEDS: METHADONE HCL 5 MG TABLET (FOR DETOX USE ONLY) PO SCH (10:14)
[2018-04-18] MEDS: NICOTINE 14 MG/24 HOURS TOPICAL PATCH TD SCH (10:14)
[2018-04-18] MEDS: diazePAM 5 MG TABLET PO SCH ×2 (10:14→22:11)
[2018-04-18] MEDS: SULFAMETHOXAZOLE/TRIMETHOPRIM 800MG/160MG D.S. TABLET PO SCH ×2 (10:15→22:13)
[2018-04-18] MEDS: PRENATAL VITAMINS W/ FOLIC ACID TABLET (FP) PO SCH (10:16)
--- NOTE | 2018-04-18 14:47 | PN ---
[facility] CIWA - CIWA Score Nausea/Vomitin-Mild Nausea/No Vomiting Muscle Tremors: 3 Anxiety: 3 Agitation: 3 Paroxysmal Sweats: 3 Orientation: 0-Oriented Tacttile Disturbances: 1-Very Mild Itch/Numbness Auditory Disturbances: 0-None Visual Disturbances: 0-None Headache: 0-None Present CIWA-Ar Total Score: 14 BHS COWS - Scale Resting Pulse: 0= [place] 80 or Below Sweatin= Chills/Flushing Restless Observation: 3= Extraneous Movement Pupil Size: 0= Normal to Room Light Bone or Joint Aches: 1= Mild Discomfort Runny Nose/ Eye Tearin= None GI Upset > 30mins: 2= Nausea/Diarrhea Tremor Observation of Outstretched Hands: 2= Slight Tremor Visible Yawning Observation: 1= 1-2x During Session Anxiety or Irritability: 2=Irritable/Anxious Goose Flesh Skin: 0=Smooth Skin COWS Score: 12 S Progress Note (SOAP) Subjective: Sweating, chills, tremor, LBP, legs hurting, interrupted sleep Objective: 04/18/18 14:45 Last Vital Signs Temp Pulse Resp BP Pulse Ox 97.3 F L 63 18 106/70 04/18/18 13:20 04/18/18 13:20 04/18/18 13:20 04/18/18 13:20 Laboratory Tests 04/17/18 04/17/18 04/17/18 07:00 07:00 07:00 WBC 8.4 RBC 4.90 Hgb 13.5 Hct 40.4 MCV 82.5 MCH 27.7 MCHC 33.5 RDW 14.8 Plt Count 208 MPV 9.0 D Sodium 139 Potassium 3.5 Chloride 98 Carbon Dioxide 33 H Anion Gap 8 BUN 7 Creatinine 0.8 Creat Clearance w eGFR > 60 Random Glucose 89 Calcium 8.8 Total Bilirubin 1.1 H AST 12 L ALT 16 Alkaline Phosphatase 89 Total Protein 6.3 L Albumin 3.3 L Urine Color Urine Appearance Urine pH Ur Specific [place] Urine Protein Urine Glucose (UA) Urine Ketones Urine Blood Urine Nitrite Urine Bilirubin Urine Urobilinogen Ur Leukocyte Esterase Urine WBC (Auto) Urine RBC (Auto) Urine Bacteria RPR Titer Nonreactive 04/17/18 13:20 WBC RBC Hgb Hct MCV MCH MCHC RDW Plt Count MPV Sodium Potassium Chloride Carbon Dioxide Anion Gap BUN Creatinine Creat Clearance w eGFR Random Glucose Calcium Total Bilirubin AST ALT Alkaline Phosphatase Total Protein Albumin Urine Color Yellow Urine Appearance Clear Urine pH 7.0 Ur Specific [place] 1.009 L Urine Protein 1+ H Urine Glucose (UA) Negative Urine Ketones Negative Urine Blood Negative Urine Nitrite Negative Urine Bilirubin Negative Urine Urobilinogen Negative Ur Leukocyte Esterase Negative Urine WBC (Auto) 1 Urine RBC (Auto) 1 Urine Bacteria Rare RPR Titer Labs reviewed: abnormal UA Assessment: 04/18/18 14:45 Withdrawal sxs Noted with abnormal UA Plan: Continue detox Abnormal UA: encouraged PO water intake, repeat UA
[2018-04-18] MEDS: QUEtiapine FUMARATE 25 MG TABLET (FP) PO SCH (22:11)
[2018-04-18] MEDS: THIAMINE HCL 100 MG TABLET (FP) PO SCH (22:11)
[2018-04-19] MEDS: diazePAM 5 MG TABLET PO PRN ×2 (05:49→13:47)
[2018-04-19] MEDS: PRENATAL VITAMINS W/ FOLIC ACID TABLET (FP) PO SCH (10:32)
[2018-04-19] MEDS: diazePAM 5 MG TABLET PO SCH ×2 (10:32→22:16)
[2018-04-19] MEDS: SULFAMETHOXAZOLE/TRIMETHOPRIM 800MG/160MG D.S. TABLET PO SCH ×2 (10:32→22:17)
[2018-04-19] MEDS: METHADONE HCL 5 MG TABLET (FOR DETOX USE ONLY) PO SCH (10:33)
[2018-04-19] MEDS: NICOTINE 14 MG/24 HOURS TOPICAL PATCH TD SCH (10:33)
--- NOTE | 2018-04-19 14:43 | PN ---
[facility] Progress Note (SOAP) Subjective: Anxious, chills, interrupted sleep Objective: 04/19/18 14:41 Last Vital Signs Temp Pulse Resp BP Pulse Ox 96.7 F L 68 18 100/68 04/19/18 13:52 04/19/18 13:52 04/19/18 13:52 04/19/18 13:52 Laboratory Tests 04/17/18 04/17/18 04/17/18 07:00 07:00 07:00 WBC 8.4 RBC 4.90 Hgb 13.5 Hct 40.4 MCV 82.5 MCH 27.7 MCHC 33.5 RDW 14.8 Plt Count 208 MPV 9.0 D Sodium 139 Potassium 3.5 Chloride 98 Carbon Dioxide 33 H Anion Gap 8 BUN 7 Creatinine 0.8 Creat Clearance w eGFR > 60 Random Glucose 89 Calcium 8.8 Total Bilirubin 1.1 H AST 12 L ALT 16 Alkaline Phosphatase 89 Total Protein 6.3 L Albumin 3.3 L Urine Color Urine Appearance Urine pH Ur Specific [place] Urine Protein Urine Glucose (UA) Urine Ketones Urine Blood Urine Nitrite Urine Bilirubin Urine Urobilinogen Ur Leukocyte Esterase Urine WBC (Auto) Urine RBC (Auto) Urine Bacteria RPR Titer Nonreactive 04/17/18 13:20 WBC RBC Hgb Hct MCV MCH MCHC RDW Plt Count MPV Sodium Potassium Chloride Carbon Dioxide Anion Gap BUN Creatinine Creat Clearance w eGFR Random Glucose Calcium Total Bilirubin AST ALT Alkaline Phosphatase Total Protein Albumin Urine Color Yellow Urine Appearance Clear Urine pH 7.0 Ur Specific [place] 1.009 L Urine Protein 1+ H Urine Glucose (UA) Negative Urine Ketones Negative Urine Blood Negative Urine Nitrite Negative Urine Bilirubin Negative Urine Urobilinogen Negative Ur Leukocyte Esterase Negative Urine WBC (Auto) 1 Urine RBC (Auto) 1 Urine Bacteria Rare RPR Titer Labs reviewed: abnormal UA (repeat ordered) Assessment: 04/19/18 14:42 Withdrawal sxs Abnormal UA noted Plan: Continue detox Abnormal UA: encouraged PO water intake, follow up on repeated UA
[2018-04-19] MEDS: hydrOXYzine PAMOATE 25 MG CAPSULE (FP) PO PRN (19:16)
[2018-04-19] MEDS: QUEtiapine FUMARATE 25 MG TABLET (FP) PO SCH (22:16)
[2018-04-19] MEDS: THIAMINE HCL 100 MG TABLET (FP) PO SCH (22:16)
[2018-04-19 23:19] LABS: URINE APPEARANCE CLEAR; URINE BILIRUBIN NEGATIVE (<2.0 mg/dL); URINE COLOR LTYELLOW; URINE GLUCOSE (UA) NEGATIVE (NEGATIVE); URINE KETONE NEGATIVE (NEGATIVE); URINE LEUK ESTERASE NEGATIVE (NEGATIVE); URINE NITRITE NEGATIVE (NEGATIVE); URINE PROTEIN NEGATIVE (NEGATIVE); URINE UROBILINOGEN NEGATIVE mg/dL (0.2-1.0)
[2018-04-20] MEDS: hydrOXYzine PAMOATE 25 MG CAPSULE (FP) PO PRN ×3 (05:48→22:32)
[2018-04-20] MEDS ORDERED: METHADONE HCL 10 MG TABLET (FOR DETOX USE ONLY) PO SCH (10:00)
[2018-04-20] MEDS ORDERED: diazePAM 5 MG TABLET PO SCH (10:00)
[2018-04-20] MEDS: NICOTINE 14 MG/24 HOURS TOPICAL PATCH TD SCH (10:16)
[2018-04-20] MEDS: SULFAMETHOXAZOLE/TRIMETHOPRIM 800MG/160MG D.S. TABLET PO SCH ×2 (10:16→22:30)
[2018-04-20] MEDS: PRENATAL VITAMINS W/ FOLIC ACID TABLET (FP) PO SCH (10:17)
--- NOTE | 2018-04-20 13:46 | PN ---
[facility] Progress Note (SOAP) Subjective: Back pain, vomited once this morning, interrupted sleep Objective: 04/20/18 13:42 Last Vital Signs Temp Pulse Resp BP Pulse Ox 97.2 F L 66 18 91/56 L 04/20/18 09:16 04/20/18 09:16 04/20/18 09:16 04/20/18 09:16 Hypotension noted Laboratory Tests 04/17/18 04/17/18 04/17/18 07:00 07:00 07:00 WBC 8.4 RBC 4.90 Hgb 13.5 Hct 40.4 MCV 82.5 MCH 27.7 MCHC 33.5 RDW 14.8 Plt Count 208 MPV 9.0 D Sodium 139 Potassium 3.5 Chloride 98 Carbon Dioxide 33 H Anion Gap 8 BUN 7 Creatinine 0.8 Creat Clearance w eGFR > 60 Random Glucose 89 Calcium 8.8 Total Bilirubin 1.1 H AST 12 L ALT 16 Alkaline Phosphatase 89 Total Protein 6.3 L Albumin 3.3 L Urine Color Urine Appearance Urine pH Ur Specific [place] Urine Protein Urine Glucose (UA) Urine Ketones Urine Blood Urine Nitrite Urine Bilirubin Urine Urobilinogen Ur Leukocyte Esterase Urine WBC (Auto) Urine RBC (Auto) Urine Bacteria RPR Titer Nonreactive 04/17/18 04/19/18 13:20 23:05 WBC RBC Hgb Hct MCV MCH MCHC RDW Plt Count MPV Sodium Potassium Chloride Carbon Dioxide Anion Gap BUN Creatinine Creat Clearance w eGFR Random Glucose Calcium Total Bilirubin AST ALT Alkaline Phosphatase Total Protein Albumin Urine Color Yellow L[place] Urine Appearance Clear Clear Urine pH 7.0 7.0 Ur Specific [place] 1.009 L 1.011 Urine Protein 1+ H Negative Urine Glucose (UA) Negative Negative Urine Ketones Negative Negative Urine Blood Negative Negative Urine Nitrite Negative Negative Urine Bilirubin Negative Negative Urine Urobilinogen Negative Negative Ur Leukocyte Esterase Negative Negative Urine WBC (Auto) 1 Urine RBC (Auto) 1 Urine Bacteria Rare RPR Titer Labs reviewed Assessment: 04/20/18 13:43 Withdrawal symptoms Noted with hypotension Plan: Continue detox Hypotension: asymptomatic, encouraged PO water intake
[2018-04-20] MEDS: QUEtiapine FUMARATE 25 MG TABLET (FP) PO SCH (22:29)
[2018-04-20] MEDS: THIAMINE HCL 100 MG TABLET (FP) PO SCH (22:29)
[2018-04-20 23:18] VITALS: BP 132/84; PULSE 72; TEMP 97.8
[2018-04-21] MEDS ORDERED: METHADONE HCL 5 MG TABLET (FOR DETOX USE ONLY) PO SCH (06:00)
--- NOTE | 2018-04-21 10:53 | DS ---
[facility] Detox Discharge Summary Admission Date: 04/16/18 Discharge Date: 04/21/18 - History Present History: Opioid Dependence, Sedative Dependence Additional Comments: Patient completed detox. Detox stay uneventful. Patient is stable for discharge. He denied any complaints. Patient instructed to follow up with his PCP within 1-2 weeks. Pertinent Past History: Opioid dependence Sedative dependence Nicotine dependence Hepatitis C - Physical Exam Results Vital Signs: Vital Signs Temperature 97.8 F 04/20/18 23:16 Pulse Rate 72 04/20/18 23:16 Respiratory Rate 18 04/21/18 03:30 Blood Pressure 132/84 04/20/18 23:16 O2 Sat by Pulse Oximetry (%) Pertinent Admission Physical Exam Findings: Withdrawal symptoms Laboratory Tests 04/17/18 04/17/18 04/17/18 07:00 07:00 07:00 WBC 8.4 RBC 4.90 Hgb 13.5 Hct 40.4 MCV 82.5 MCH 27.7 MCHC 33.5 RDW 14.8 Plt Count 208 MPV 9.0 D Sodium 139 Potassium 3.5 Chloride 98 Carbon Dioxide 33 H Anion Gap 8 BUN 7 Creatinine 0.8 Creat Clearance w eGFR > 60 Random Glucose 89 Calcium 8.8 Total Bilirubin 1.1 H AST 12 L ALT 16 Alkaline Phosphatase 89 Total Protein 6.3 L Albumin 3.3 L Urine Color Urine Appearance Urine pH Ur Specific [place] Urine Protein Urine Glucose (UA) Urine Ketones Urine Blood Urine Nitrite Urine Bilirubin Urine Urobilinogen Ur Leukocyte Esterase Urine WBC (Auto) Urine RBC (Auto) Urine Bacteria RPR Titer Nonreactive 04/17/18 04/19/18 13:20 23:05 WBC RBC Hgb Hct MCV MCH MCHC RDW Plt Count MPV Sodium Potassium Chloride Carbon Dioxide Anion Gap BUN Creatinine Creat Clearance w eGFR Random Glucose Calcium Total Bilirubin AST ALT Alkaline Phosphatase Total Protein Albumin Urine Color Yellow [place] Urine Appearance Clear Clear Urine pH 7.0 7.0 Ur Specific [place] 1.009 L 1.011 Urine Protein 1+ H Negative Urine Glucose (UA) Negative Negative Urine Ketones Negative Negative Urine Blood Negative Negative Urine Nitrite Negative Negative Urine Bilirubin Negative Negative Urine Urobilinogen Negative Negative Ur Leukocyte Esterase Negative Negative Urine WBC (Auto) 1 Urine RBC (Auto) 1 Urine Bacteria Rare RPR Titer Labs reviewed - Treatment Hospital Course: Detox Protocol Followed, Detoxed Safely, Responded well, Discharged Condition Good - Medication Discharge Medications: Ambulatory Orders Quetiapine Fumarate [Seroquel -] 50 mg PO HS #30 tablet 02/13/18 Quetiapine Fumarate [Seroquel -] 75 mg PO HS #90 tablet 04/20/18 - Diagnosis (1) Cellulitis Status: Acute (2) Drug-induced mood disorder Status: Acute (3) Insomnia Status: Acute (4) Nicotine dependence Status: Chronic Qualifiers: Nicotine product type: cigarettes Substance use status: in withdrawal Qualified Code(s): F17.213 - Nicotine dependence, cigarettes, with withdrawal (5) Sedative, hypnotic or anxiolytic dependence with withdrawal, uncomplicated Status: Acute (6) Opioid dependence with withdrawal Status: Acute (7) Hepatitis C Status: Chronic Qualifiers: Viral hepatitis chronicity: chronic Hepatic coma status: without hepatic coma Qualified Code(s): B18.2 - Chronic viral hepatitis C - AMA Did Patient Leave Against Medical Advice: No (F/U with your PCP within 1-2 weeks )
== END 2018-04-21 06:10 | disposition home or self-care (01) | DRG 773 ==
LOC: YASAS 14:54 → Y3N 16:40
PROC: HZ2ZZZZ Detoxification Services for Substance Abuse Treatment (ICD-10-PCS; principal; 2018-04-16)
DX: F11.23 Opioid dependence with withdrawal (principal); F13.230 Sedative, hypnotic or anxiolytic dependence with withdrawal, uncomplicated; F14.20 Cocaine dependence, uncomplicated; F12.20 Cannabis dependence, uncomplicated; F17.213 Nicotine dependence, cigarettes, with withdrawal; F19.24 Other psychoactive substance dependence with psychoactive substance-induced mood disorder; F51.05 Insomnia due to other mental disorder; E86.0 Dehydration; G47.00 Insomnia, unspecified; B18.2 Chronic viral hepatitis C; L03.90 Cellulitis, unspecified; R82.90 Unspecified abnormal findings in urine; I95.9 Hypotension, unspecified; L90.5 Scar conditions and fibrosis of skin; R00.0 Tachycardia, unspecified
CPT/HCPCS: 36415; 80053; 81003; 81015; 85027; 86593; 93005; 93010